=== PATIENT | female | born 1955 | race Caucasian/White ===

== ENCOUNTER → 2022-05-09 08:11 | Outpatient (BNVA) | payer OTHER, SELFPAY | PROVIDERS: PCP Internal Medicine; Visit Provider Psychiatry & Neurology Neurology | DX: Z13.89 Encounter for screening for other disorder (principal) ==

== ENCOUNTER → 2023-01-02 09:48 | Outpatient (BNVA) | payer OTHER, SELFPAY | PROVIDERS: PCP Internal Medicine; Visit Provider Psychiatry & Neurology Neurology | DX: R06.83 Snoring (principal); G47.10 Hypersomnia, unspecified ==

== ENCOUNTER 2023-01-02 09:49 | Outpatient (AMB) | payer OTHER, SELFPAY ==
--- NOTE | 2023-01-02 10:04 | A.OFFVIS_ITS ---
Intake Intake Visit Reasons: 4m follow up Epilepsy -confirmed [phone] Intake Note: F/U Epileptic Inventory Assistant Required: No Allergies No Known Allergies Allergy (Verified 01/02/23 10:05) Medication List - Last Reconciled 01/02/23 by Genet Virk MD ethosuximide 2 caps qama nd qhs 1 cap at noon orally 3 times a day; phenobarbital 60 mg PO BEDTIME HPI HPI Comments History of Present Illness Details 66y/o female with seizures calls for [facility] up. No major episodes. Her initial seizures was when she was in High school.But her episodes increased when she had her son 40 years ago. she reports both episodes of GTC and episodes of passing out. ABout 10-15 years ago when she had 2 drinks she had 2 GTC at home and was hospitalized, her phenobarb level was low. She does not have any GTC now but has petit mal -staring episodes. she does not drive . she has been followed up by Dr. Jaimes for many years and feels these medications help her. she is on zarontin ( ethosuxamide ) 250 mg 2-1-2 and phenobarb 60mg qd No h/o head injury She does not drive or work PFSH Medical History Hypersomnia Snoring Sleep walking Diverticulosis Epilepsy Hyperlipidemia Family History Father Cancer Mother Myocardial infarction Social History Alcohol intake: never Patient Tobacco Use Status: Former Tobacco user Quit Date: 1981 Use of substances other than those prescribed or required for medical reasons: No Physical Exam Const Other: SPeech normal General: cooperative Assessment & Plan Assessment & Plan (1) Seizure disorder: Code(s): G40.909 - Epilepsy, unspecified, not intractable, without status epilepticus (2) Hypersomnia: Code(s): G47.10 - Hypersomnia, unspecified Plan EEG MRI Neurology reports from PCP and [place] for review. Continue ethosuxamide 250mg 2 caps bid and 1 cap at noon , phenobarb 60mg qhs Home sleep test to r/o sleep apnea- declines Lab reports from PCP Medications: Refilled phenobarbital 60 mg PO BEDTIME 90 tabs 5RF ethosuximide 2 caps qama nd qhs 1 cap at noon orally 3 times a day; 155 caps 6RF Telehealth Telehealth Location of provider rendering services: practice address Location of patient: address on file Patient Identification confirmed using: Name, : Yes Telehealth method: voice only Patient verbally consented to treatment: Yes Patient verbally consented to billing insurance company: Yes Patient informed of any privacy concerns related to visit: Yes Coding Level of Care Code Tele Est Pt Level 3 (35821) Diagnoses Seizure disorder G40.909 Hypersomnia G47.10 Time Spent (min) 15
== END 2023-01-02 11:49 | disposition home or self-care (01) ==
PROVIDERS: PCP Internal Medicine; Visit Provider Psychiatry & Neurology Neurology
DX: G40.909 Epilepsy, unspecified, not intractable, without status epilepticus (principal); G47.10 Hypersomnia, unspecified
CPT/HCPCS: 99213

== ENCOUNTER 2024-10-03 13:28 | Outpatient (AMB) | payer MEDICARE, MEDICAID, SELFPAY ==
--- NOTE | 2024-10-03 13:40 | A.OFFVIS_ITS ---
Vital Signs 10/03/24 13:42 Height 5 ft 4 in Weight 183 lb BMI 31.4 BP 118/70 Blood Pressure Location Rt brachial Position Sitting Pulse 60 Pulse Source Pulse Oximeter Pulse Oximetry (%) 98 Oxygen Delivery Method Room Air Intake Visit Reasons: f/u for seizures Intake Note: patient following up on seizures Allergies No Known Allergies Allergy (Verified 10/03/24 13:43) Medication List - Last Reconciled 10/03/24 by Genet Virk MD ethosuximide 2 caps qam, 1 cap q 12pm, 2 caps qhs orally .; 90 days phenobarbital 60 mg PO BEDTIME HPI Comments Details: 66y/o female with seizures comes for follow up. No major episodes. 2mths ago she was helping her with fence and passed out for few seconds. she also has frequent black outs - 9-10-20 seconds - has 6-8 episodes a day. Her initial seizures was when she was in High school.But her episodes increased when she had her son 40 years ago. she reports both episodes of GTC and episodes of passing out. ABout 10-15 years ago when she had 2 drinks she had 2 GTC at home and was hospitalized, her phenobarb level was low. She does not have any GTC now but has petit mal -staring episodes. she does not drive . she has been followed up by Dr. Jaimse for many years and feels these medications help her. she is on zarontin ( ethosuxamide ) 250 mg 2-1-2 and phenobarb 60mg qd No h/o head injury She does not drive or work [facility] Medical History Hypersomnia Snoring Sleep walking Diverticulosis Epilepsy Hyperlipidemia Family History Father Cancer Mother Myocardial infarction Social History Alcohol intake: never Patient Tobacco Use Status: Former Tobacco user Physical Exam Vital Signs: Last Vital Signs Pulse 60 10/03/24 13:42 BP 118/70 10/03/24 13:42 Pulse Ox 98 10/03/24 13:42 Oxygen Delivery Method Room Air 10/03/24 13:42 BMI result Body Mass Index 31.4 Const General: cooperative and comfortable Nutritional Appearance: average body habitus Orientation/consciousness: patient oriented x3 Limitations: no limitations HEENT Head: Yes normal to inspection Eyes Pupils: Equal, round and reactive pupils present Neuro General: patient oriented x3, gait normal, tone normal, moves all extremities and no focal motor deficits Cranial nerves: Yes Facial sensation intact/muscles of mastication intact, Yes Equal, round and reactive pupils present, Yes Bilaterally intact EOM present, Yes Nystagmus not present, Yes Normal facial strength present, Yes Midline tongue present and Yes Symmetric palate elevation present Gait exam (Neuro): Normal gait present Motor exam (neuro): 5/5 motor strength present throughout Coordination: srvmyn-ga-wars test normal Psych Affect: Anxious affect present Assessment & Plan Assessment & Plan (1) Seizure disorder: Code(s): G40.909 - Epilepsy, unspecified, not intractable, without status epilepticus Category: Medical (2) Hypersomnia: Code(s): G47.10 - Hypersomnia, unspecified Category: Medical Plan EEG MRI Neurology reports from PCP and [place] for review. refer to [facility] Epilepsy clinic Continue ethosuxamide 250mg 2 caps bid and 1 cap at noon , phenobarb 60mg qhs Patient declines sleep study A letter for disability was given today Orders: Referrals Neurology Referral G40.909 - Epilepsy, unspecified, not intractable, without status epilepticus Coding Level of Care Code Est Pt Level 4 (15811) Complex EM visit Add On G2211 Diagnoses Seizure disorder G40.909 Hypersomnia G47.10
[2024-10-03 13:42] VITALS: BP 118/70; PULSE 60; O2SAT 98; BMI 31.4
--- OUTSIDE RECORDS SUMMARY | 2024-10-03 14:51 | XMS_ITS | Clinical Summary ---
Author Organization [facility] [address] [facility] Address [address] [place] [phone] Phone Care Team Providers Care Road Gang Supervisor Name Role Phone Dakota Bonilla MD Primary Care Provider [phone] Allergies No known active allergies Medications ethosuximide (ZARONTIN) 250 mg capsule Take 1 Cap by mouth 3 times daily. 2 in the morning, 1 at noon, and 2 in the evening, 11/14/2019 Active um-skg-wsxox-michael cium carb-K1 (Women's 50 Plus Multivitamin) 400 mcg-500 mg calcium-20 mcg tablet Take by mouth. 10/01/2016 Active PHENobarbitaL 60 mg tablet Take 1 tablet (60 mg total) by mouth 1 (one) time each day. Max Daily Amount: 60 mg 90 tablet 08/29/2024 Active Active Problems Problem Noted Date Diagnosed Date Dyspareunia, female 06/17/2022 Overview (03/09/2024): Last Assessment & Plan: Encouraged use of lubricant (not vaseline) during intercourse. Suggested use of coconut oil, olive oil or another OTC lubricant. Patient to return if pain continues. Hot flashes due to menopause 06/17/2022 Overview (03/09/2024): Last Assessment & Plan: Behavioral modifications and dietary changes discussed. Encouraged exercise. All questions answered. Hyperlipidemia, mixed 11/14/2019 Encephalopathy 07/28/2015 Diverticulitis of colon without hemorrhage 12/15 Overview (03/09/2024): Incidental finding at colonoscopy 12/15/2006. 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 Washburn Encounters Date Type Department Care Team Description 09/19/2024 2:00 PM EDT Office Visit Obstetrics and Gynecology [address] [phone] Mia Harley MD Encounter for gynecological examination without abnormal finding (Primary Dx); Other specified counseling from Last 3 Months Immunizations Name Administration Dates Next Due Influenza trivalent, 0.5mL ( Fluzone High-dose) 65yo and older 01/29/2022,12/28/2020 Influenza trivalent, with pr eservative (Fluzone; Afluria) 6mo and older 12/23/2019,02/24/2008,02/11/2007,02/13,02/14/2005 Pfizer (ages 12 & older) Biv alent, COVID-19 04/17/2022 Pneumococcal conjugate 13 va lent (Prevnar 13, PCV13) 2mo and older 12/23/2019 Pneumococcal polysaccharide 23 valent (Pneumovax 23) 2yo and older 12/28/2020 Tdap Tetanus diptheria acell ular pertussis (Boostrix; Adacel) 7yo and older 08/20/2021 Zoster recombinant (Shingrix ) 19yo and older 07/25/2022,04/26/2022 Surgical History Surgery Date Site/Laterality Comments SECTION PROCEDURE: HISTORICAL DELIVERY; COMMENT: times 1 CHOLECYSTECTOMY 10/11/2009 PROCEDURE: HISTORICAL CHOLECYSTECTOMY HERNIA REPAIR 10/31/2010 PROCEDURE: HISTORICAL HERNIA REPAIR/ING OTHER SURGICAL HISTORY PROCEDURE: ME HYSTEROSCOPY ENDOMETRIAL ABLATION COLONOSCOPY 12/15/2006 PROCEDURE: HISTORICAL COLONOSCOPY; COMMENT: Negative COLONOSCOPY 03/19/2017 PROCEDURE: HISTORICAL COLONOSCOPY; COMMENT: minimal diverticulosis; otherwise negative screening exam. Medical History Medical History Date Comments Anxiety state, unspecified DX:An xiety state, unspecified Localization-related (focal) (partial) epilepsy and epileptic syndromes with simple partial seizures, without mention of intractable epilepsy 02/13/2006 DX:Localization-relate d (focal) (partial) epilepsy and epileptic syndromes with simple partial seizures, without mention of intractable epilepsy Diverticulosis of colon (wit hout mention of hemorrhage) 12/15/2006 DX:Diverticulosis of colon ( without mention of hemorrhage); COMMENT: Incidental finding at colonoscopy 12/15/2006. Family History Medical History Relation Name Comments Colon cancer Father Colon cancer Father's side Aunt Coronary artery disease Mother Hypertension Mother Breast cancer Mother's side m cousin ? age cousin Breast cancer Paternal Grandmother ? age Ovarian cancer Neg Hx Relation Name Status Comments Father Father's side Mother Mother's side m cousin ? age Alive Paternal Grandmother ? age Social History Tobacco Use Types Packs/Day Years Used Date Smoking Tobacco: Former Cigarettes Q uit: 01/09/1982 Smokeless Tobacco: Never Tobacco Cessation:Counseling Given: Not Answered Alcohol Use Standard Drinks/Week Comments No 0 (1 standard drink = 0.6 oz pur e alcohol) Comments No Sex and Gender Information Value Date Recorded Sex Assigned at Not on file Legal Sex Female 8:33 PM EST Gender Identity Not on file Sexual Orientation Not on file Obstetrics History Para Term AB IAB SAB Ectopic Multiple Livin g Live Births 1 04 13 1 Date Outcome GA Total Labor Labor/2nd/3rd Weight Sex Type Anes PTL Eusebia A1 A5 Name Clin Term Last Filed Vital Signs Vital Sign Reading Time Taken Comments Blood Pressure 137/76 09/19/2024 1:09 PM EDT Pulse 83 09/19/2024 1:09 PM EDT Temperature 36.6 C (97.9 F) 05/09/2024 3:53 PM EST Respiratory Rate 14 09/19/2024 1:09 PM EDT Oxygen Saturation - - Inhaled Oxygen Concentration - - Weight 81.5 kg (179 lb 9.6 oz) 09/19/2024 1:09 P M EDT Height 162.6 cm (5' 4 ) 09/19/2024 1:09 PM EDT Body Mass Index 30.83 09/19/2024 1:09 PM EDT Plan of Treatment Upcoming Encounters Date Type Department Care Team (Late st Contact Info) Description 11/10/2024 1:15 PM EDT Office Visit Adult Medicine [address] [phone] Dakota Bonilla MD [address] [place] [address] Health Maintenance Due Date Last Done Comments Depression Screening 03/22/2022 Falls Risk Assessment 03/22/2022 Medicare Annual Wellness Visit 03/22/2022 Social Influencers of Health Screening 03/22/2022 COVID-19 Vaccine ( season) 2024 03/23/2024, 06/30/2023, 12/29/2022, Additional history exists Breast Cancer Screening 04/11/2026 04/11/20 24, 03/31/2023, 03/25/2022, Additional history exists Colorectal Cancer Screening: Colonoscopy 03/19/2027 03/19/2017 Cholesterol Screening (Lipid Panel) 05/10/2029 05/10/2024, 05/07/2023 RSV Immunization Adult Patients (1 - 1-dose 75+ series) 11/26/2030 DTaP,Tdap,and Td Vaccines (2 - Td or Tdap) 08/21/2031 08/20/2021 Osteoporosis Screening (Bone Density Screening) 06/27/2032 06/27/2022 Hepatitis C Screening Completed 10/15/2012 Pneumococcal Vaccine: 50+ Years Completed 01/29/2022, 12/28/2020, 12/23/2019 Zoster Vaccines Completed 07/25/2022, 04/26/2022 Influenza Vaccine Completed 03/23/2024, , 12/29/2022, Additional history exists HIB Vaccines Aged Out No longer eligi ble based on patient's age to complete this topic HPV Vaccines Aged Out No longer eligi ble based on patient's age to complete this topic Hepatitis A Vaccines Aged Out No long er eligible based on patient's age to complete this topic Hepatitis B Vaccines Aged Out No long er eligible based on patient's age to complete this topic IPV Vaccines Aged Out No longer eligi ble based on patient's age to complete this topic MMR Vaccines Aged Out No longer eligi ble based on patient's age to complete this topic Meningococcal ACWY Vaccine Aged Out N o longer eligible based on patient's age to complete this topic Meningococcal B Vaccine Aged Out No l onger eligible based on patient's age to complete this topic RSV Immunization Patients Under 20 months Aged Out No longer eligible based on patient's age to complete this topic Varicella Vaccines Aged Out No longer eligible based on patient's age to complete this topic Procedures Procedure Name Priority Date/Time Associated Diagnosis Comments LIPID PANEL WITH REFLEX TO DIRECT LDL Routine 05/10/2024 9:45 AM EST Hyperlipidemia, mixed MG MAMMO DIGITAL SCREENING W ARTURO BILAT Routine 04/11/2024 2:36 PM EST Encounter for screening mammogram for breast cancer DXA BONE DENSITY STUDY 1+ SITS AXIAL SKEL Routine 06/27/2022 9:29 AM EDT Encounter for screening for osteoporosis COLONOSCOPY Routine 03/19/2017 HEPATITIS C SCREENING Routine 10/15/2012 from Last 3 Months or Most Recently Relevant to Health Maintenance Results * (ABNORMAL) Lipid panel with reflex to direct LDL (05/10/2024 9:45 AM EST) Cholesterol 205(H) 0 - 200 mg/dL LAB CHEMISTRY METHOD 05/10/2024 1:19 PM [facility] Triglycerides 82 0 - 150 mg/dL LAB CHEMISTRY METHOD 05/10/2024 1:19 PM [facility] HDL 92 >=40 mg/dL LAB CHEMISTRY METHOD 05/10/2024 1:19 PM [facility] LDL Calculated 97 0 - 100 mg/dL LAB CHEMISTRY METHOD 05/10/2024 1:19 PM [facility] VLDL Cholesterol Michael 16.4 mg/dL LAB CHEMISTRY METHOD 05/10/2024 1:19 PM [facility] Non HDL Chol. (LDL+VLDL) 113 <145 mg/dL LAB CHEMISTRY METHOD 05/10/2024 1:19 PM [facility] Chol/HDL Ratio 2.2 0.0 - 4.4 LAB CHEMISTRY METHOD 05/10/2024 1:19 PM EST [facility] Blood Venous blood specimen / Unknown Venipuncture / Unknown 05/10/2024 9:45 AM EST 05/10/2024 9:45 AM EST us Dakota Bonilla MD LAB BLOOD ORDERABLES Final Resu lt [facility] [address] [place] [address], [place] [phone] * MG Mammo Digital Screening w Arturo bilat (04/11/2024 2:36 PM EST) Anatomical Region Laterality Modality Breast Bilateral Mammography 04/12/2024 6:10 PM EST Impressions 04/12/2024 6:11 PM EST No mammographic evidence of malignancy. BREAST DENSITY: D - The breasts are extremely dense which lowers the sensitivity of mammography. BI-RADS CATEGORY: 1 - NEGATIVE RECOMMENDATION: Screening bilateral mammogram is recommended in 1 year. MAMMO LOCATION: [facility], [address] [place] [address], [id number], . -------- FINAL REPORT -------- Dictated By: Merlene Ayala Dictated Date: 04/12/2024 18:10 ET Assigned Physician: Merlene Ayala Reviewed and Electronically Signed By: Merlene Ayala Signed Date: 04/12/2024 18:11 ET Workstation ID: [id number] Transcribed By: Self Edit Transcribed Date: 04/12/2024 18:10 ET Narrative 04/12/2024 6:11 PM EST EXAM: Screening Mammogram CLINICAL: 68 years old, Female, routine annual exam. COMPARISON: 03/31/2023 and as far back as 03/03/2020 TECHNIQUE: Bilateral MLO and CC views were obtained digitally with 3-D mammogram (digital breast tomosynthesis). Computer-aided detection was utilized in evaluation of this exam (CAD). FINDINGS: No new suspicious mass, architectural distortion, or suspicious calcifications. Procedure Note Merlene Ayala MD - 04/12/2024 EXAM: Screening Mammogram CLINICAL: 68 years old, Female, routine annual exam. COMPARISON: 03/31/2023 and as far back as 03/03/2020 TECHNIQUE: Bilateral MLO and CC views were obtained digitally with 3-Dmammogram (digital breast tomosynthesis). Computer-aided detection wasutilized in evaluation of this exam (CAD). FINDINGS: No new suspicious mass, architectural distortion, or suspiciouscalcifications. IMPRESSION: No mammographic evidence of malignancy. BREAST DENSITY: D - The breasts are extremely dense which lowers thesensitivity of mammography. BI-RADS CATEGORY: 1 - NEGATIVE RECOMMENDATION: Screening bilateral mammogram is recommended in 1 year. MAMMO LOCATION: [facility], [address] [place] [address], [id number], . -------- FINAL REPORT -------- Dictated By: Merlene Ayala Dictated Date: 04/12/2024 18:10 ET Assigned Physician: Merlene Ayala Reviewed and Electronically Signed By: Merlene Ayala Signed Date: 04/12/2024 18:11 ET Workstation ID: [id number] Transcribed By: Self Edit Transcribed Date: 04/12/2024 18:10 ET us Dakota Bonilla MD IMG BI PROCEDURES Final Result * DXA BONE DENSITY STUDY 1+ SITS AXIAL SKEL (06/27/2022 9:29 AM EDT) Anatomical Region Laterality Modality Bone Densitometr y 08/20/2021 2:20 PM EDT Narrative 06/27/2022 2:02 PM EDT BONE DENSITY Lumbar Spine T-score is -0.4 (SD relative to 20-29 y/o adult) Z-score is +1.5 (SD relative to age matched peers) This is normal by criteria defined by the WHO. Left Hip T-score is -2.1 Z-score is -0.7 This is consistent with osteopenia by criteria defined by the WHO. Impression: Based on the World Health Organization criteria, Inga Smith should be classified as having osteopenia. This patient has a 8.9% risk of major osteoporotic fracture and a 0.9% risk of hip fracture over the next 10 years. (World Health Organization Fracture Risk Assessment) [facility] Department of Internal Medicine recommends using National Osteoporosis Foundation (NOF) guidelines in treatment decisions related to osteoporosis. NOF guidelines suggest considering treatment for postmenopausal women and men aged 50 or older presenting with the following: History of hip or vertebral fracture. T-score less than or equal to -2.5 (DXA) at the femoral neck, total hip, or spine, after appropriate evaluation to exclude secondary causes. Low bone mass (T-score between -1.0 and -2.5 at the femoral neck or spine) AND a 10-year probability of a hip fracture greater than or equal to 3% OR a 10-year probability of a major osteoporosis-related fracture greater than or equal to 20% based on the [place]-adapted WHO algorithm Please note that all treatment decisions require clinical judgment and consideration of individual patient factors, including patient preferences, co-morbidities, previous drug use, risk factors not captured in the FRAX model (e.g., frailty, falls, vitamin D deficiency, increased bone turnover, interval significant decline in bone density) and possible under- or over-estimation of fracture risk by FRAX. Procedure Note Ruddy Maddox MD - 05/18/2023 BONE DENSITY Lumbar Spine T-score is -0.4 (SD relative to 20-29 y/o adult) Z-score is +1.5 (SD relative to age matched peers) This is normal by criteria defined by the WHO. Left Hip T-score is -2.1 Z-score is -0.7 This is consistent with osteopenia by criteria defined by the WHO. Impression: Based on the World Health Organization criteria, Inga Smith should beclassified as having osteopenia. This patient has a 8.9% risk of majorosteoporotic fracture and a 0.9% risk of hip fracture over the next 10years. (World Health Organization Fracture Risk Assessment) [facility] Department of Internal Medicine recommendsusing National Osteoporosis Foundation (NOF) guidelines in treatmentdecisions related to osteoporosis. NOF guidelines suggest consideringtreatment for postmenopausal women and men aged 50 or older presentingwith the following: History of hip or vertebral fracture. T-score less than or equal to -2.5 (DXA) at the femoral neck, total hip,or spine, after appropriate evaluation to exclude secondary causes. Low bone mass (T-score between -1.0 and -2.5 at the femoral neck or spine)AND a 10-year probability of a hip fracture greater than or equal to 3% ORa 10-year probability of a major osteoporosis-related fracture greaterthan or equal to 20% based on the [place]-adapted WHO algorithm Please note that all treatment decisions require clinical judgment andconsideration of individual patient factors, including patientpreferences, co-morbidities, previous drug use, risk factors not capturedin the FRAX model (e.g., frailty, falls, vitamin D deficiency, increasedbone turnover, interval significant decline in bone density) and possibleunder- or over-estimation of fracture risk by FRAX. [employer] DXA PROCEDU RES Final Result * Colonoscopy (03/19/2017) Pathologist [facility] Colonoscopy no interpretation , abstracted Anatomical Region Laterality Modality Other Historical Provider HEALTH MAINTENANCE Final Result * Hepatitis C Screening (10/15/2012) [facility] Hepatitis C Screening abstracted Historical Provider HEALTH MAINTENANCE Final Result from Last 3 Months or Most Recently Relevant to Health Maintenance Insurance [place] [id number] [employer] MEDICARE ADVANTAGE Care Teams Road Gang Supervisor Relationship Specialty Start Date End Date Dakota Bonilla MD [address] [place] [id number] PCP - General Internal Medicine 10/10/19
== END 2024-10-03 14:33 | disposition home or self-care (01) ==
LOC: HO.HSMS 13:29
PROVIDERS: PCP Internal Medicine; Visit Provider Psychiatry & Neurology Neurology
DX: G40.909 Epilepsy, unspecified, not intractable, without status epilepticus (principal); G47.10 Hypersomnia, unspecified
CPT/HCPCS: 99214; G2211

== ENCOUNTER → 2024-10-03 13:28 | Outpatient (BNVA) | payer MEDICARE, MEDICAID, SELFPAY | PROVIDERS: PCP Internal Medicine; Visit Provider Psychiatry & Neurology Neurology | DX: G40.909 Epilepsy, unspecified, not intractable, without status epilepticus (principal); G47.10 Hypersomnia, unspecified | CPT/HCPCS: 99212 ==